=== PATIENT | female | born 1995 | race Caucasian/White ===

== ENCOUNTER 2018-07-30 15:18 | Emergency (ER) | payer MEDICAID, OTHER ==
[~2018-07-30] VITALS: Ht 165.1 cm; Wt 63.5 kg
[2018-07-30 15:25] VITALS: BP 121/79
--- NOTE | 2018-07-30 15:35 | NUR ---
PT. ARRIVED TO ED W/C/O "I KEEP GETTING POSITIVE TESTS AND I WANT TO SEE IF IT REALLY IS POSITIVE." I HAVE ALSO HAD N/V X 3 DAYS. PT STATES " I WENT TO THE URGENT CARE AND A CLINIC AND THE TESTS CAME BACK POSITIVE". ER MD MADE AWARE. SAFETY PRECAUTIONS IMPLEMENTED. WILL CONTINUE TO MONITOR.
[2018-07-30 16:22] LABS: BASOPHILS % (AUTO) 0.3 % (0.0-2.0); EOSINOPHILS % (AUTO) 0.4 % (0.0-4.0); HEMATOCRIT 41.9 % (36-48); HEMOGLOBIN 13.8 g/dL (12.0-16.0); LYMPHOCYTES % (AUTO) 21.1 % (20.5-51.1); MEAN CORPUSCULAR HEMOGLOBIN 30 pg (27-31); MEAN CORPUSCULAR HGB CONC 33 g/dL (33-37); MEAN CORPUSCULAR VOLUME 89.9 fL (80-94); MONOCYTES # (AUTO) 0.4 K/uL (0.8-1.0); MONOCYTES % (AUTO) 4.1 % (1.7-9.3); NEUTROPHILS # (AUTO) 7.2 K/uL (1.8-7.7); NEUTROPHILS % (AUTO) 74.1 % (42.2-75.2); PLATELET COUNT (AUTO) 283 K/uL (140-450); RED BLOOD CELL COUNT(AUTO) 4.67 MIL/uL (4.20-5.40); RED CELL DISTRIBUTION WIDTH 13.3 % (11.6-13.7); WHITE BLOOD COUNT (AUTO) 9.7 K/uL (4.5-11.0)
--- NOTE | 2018-07-30 16:35 | NUR ---
ULTRASOUND AT BEDSIDE AT THIS TIME.
[2018-07-30 16:48] LABS: APPEARANCE,URINE CLEAR (CLEAR); BILIRUBIN,URINE NEGATIVE (NEGATIVE); BLOOD, URINE NEGATIVE (NEGATIVE); COLOR,URINE YELLOW (YELLOW); LEUKOCYTE ESTERASE ,URINE NEGATIVE (NEGATIVE); NITRITE, URINE NEGATIVE (NEGATIVE); UGLUCOSE NEGATIVE (NEGATIVE)
--- NOTE | 2018-07-30 17:49 | NUR ---
CALLED REGARDING US REPORT AT THIS TIME. [facility] WILL FOLLOW UP.
[2018-07-30 18:12] VITALS: BP 118/68
--- NOTE | 2018-07-30 18:13 | NUR ---
Patient discharged with v/s stable. Written and verbal after care instructions given and explained. Patient alert, oriented and verbalized understanding of instructions. Ambulatory with steady gait. All questions addressed prior to discharge. ID band removed. Patient advised to follow up with PMD. Rx of VITAMIN given. Patient educated on indication of medication including possible reaction and side effects. Opportunity to ask questions provided and answered.
== END 2018-07-30 18:13 | disposition home or self-care (01) ==
LOC: MED 15:18
DX: O21.8 Other vomiting complicating pregnancy (principal); Z3A.01 Less than 8 weeks gestation of pregnancy
CPT/HCPCS: 36415; 76817; 81003; 81025; 84702; 85025; 86900; 86901; 99284; Q0092

== ENCOUNTER 2019-02-28 16:53 | Observation (INO) | payer OTHER ==
[~2019-02-28] VITALS: Ht 162.6 cm; Wt 85.7 kg
[2019-02-28 16:56] VITALS: BP 134/87
--- NOTE | 2019-02-28 17:10 | NUR ---
PT TAKEN TO L & D RM #[address] SCHAEFER VERBAL ORDER
[2019-02-28 17:40] VITALS: BP 111/67
[2019-02-28] MEDS ORDERED: PREN-380 PO (17:48)
[2019-02-28] MEDS ORDERED: TERBUTALINE 1 MG/ML VIAL SUBQ SCH (19:30)
[2019-02-28] MEDS ORDERED: TERBUTALINE 1 MG/ML VIAL SUBQ ONE (19:44)
--- NOTE | 2019-03-01 08:13 | NUR ---
PATIENT HAS BEEN SCREENED AND CATEGORIZED LOW NUTRITION RISK. PATIENT WILL BE SEEN WITHIN 7 DAYS OF ADMISSION. 03/07/[address]
== END 2019-03-01 14:00 | disposition home or self-care (01) ==
LOC: MED 16:53 → MLD 17:10
PROVIDERS: ADMIT Obstetrics & Gynecology; ATTEND Obstetrics & Gynecology
DX: O62.9 Abnormality of forces of labor, unspecified (principal); O99.89 Other specified diseases and conditions complicating pregnancy, childbirth and the puerperium; M54.5 Low back pain; Z3A.37 37 weeks gestation of pregnancy
CPT/HCPCS: 36415; 76815; 85379; 96372; 99281; G0378; J3105; Q0092

== ENCOUNTER 2019-03-06 00:55 | Observation (INO) | payer OTHER ==
[~2019-03-06] VITALS: Ht 165.1 cm; Wt 86.2 kg
[~2019-03-06 00:55] MED LIST: PREN-380 PO
[2019-03-06] MEDS: TERBUTALINE 1 MG/ML VIAL SUBQ SCH (02:09)
[2019-03-06 02:27] VITALS: BP 118/73
[2019-03-06] MEDS: TERBUTALINE 1 MG/ML VIAL SUBQ ONE (02:42)
--- NOTE | 2019-03-06 08:17 | NUR ---
PATIENT HAS BEEN SCREENED AND CATEGORIZED LOW NUTRITION RISK. PATIENT WILL BE SEEN WITHIN 7 DAYS OF ADMISSION. 03/12/[address]
[2019-03-06] MEDS ORDERED: TERBUTALINE 2.5 MG TAB PO SCH (10:00)
[2019-03-06] MEDS: TERBUTALINE 2.5 MG TAB ONE (10:17)
== END 2019-03-06 14:00 | disposition home or self-care (01) ==
LOC: MLD 00:55
PROVIDERS: ADMIT Obstetrics & Gynecology; ATTEND Obstetrics & Gynecology
DX: O46.93 Antepartum hemorrhage, unspecified, third trimester (principal); O62.9 Abnormality of forces of labor, unspecified; Z3A.37 37 weeks gestation of pregnancy
CPT/HCPCS: 36415; 76815; 81000; 85379; 96372; G0378; J3105; Q0092

== ENCOUNTER 2019-03-09 05:15 | Inpatient (IN) | payer OTHER ==
[~2019-03-09] VITALS: Ht 165.1 cm; Wt 85.7 kg
[2019-03-09] MEDS ORDERED: LACTATED RINGERS 1,000 ML IV SCH (05:54)
[2019-03-09] MEDS ORDERED: METHYLERGONOVINE 0.2 MG/ML AMP IM PRN (05:55)
[2019-03-09] MEDS ORDERED: CARBOPROST 250 MCG/ML AMP IM PRN (05:55)
[2019-03-09 07:01] LABS: CARBON DIOXIDE 20.1 mmol/L (21-32); CREATININE 0.6 mg/dL (0.6-1.3)
[2019-03-09 07:09] LABS: BASOPHILS % (AUTO) 0.2 % (0.0-2.0); EOSINOPHILS # (AUTO) 0.1 K/uL (0-0.4); HEMATOCRIT 34.4 % (36-48); HEMOGLOBIN 11.4 g/dL (12.0-16.0); LYMPHOCYTES # (AUTO) 1.8 K/uL (2.5-16.5); MEAN CORPUSCULAR HEMOGLOBIN 30 pg (27-31); MEAN CORPUSCULAR HGB CONC 33 g/dL (33-37); MEAN CORPUSCULAR VOLUME 89.2 fL (80-94); MONOCYTES # (AUTO) 0.6 K/uL (0.8-1.0); MONOCYTES % (AUTO) 5.2 % (1.7-9.3); NEUTROPHILS % (AUTO) 77.6 % (42.2-75.2); PLATELET COUNT (AUTO) 288 K/uL (140-450); RED BLOOD CELL COUNT(AUTO) 3.85 MIL/uL (4.20-5.40); RED CELL DISTRIBUTION WIDTH 13.7 % (11.6-13.7); WHITE BLOOD COUNT (AUTO) 11.6 K/uL (4.8-10.8)
[2019-03-09 07:16] LABS: ALBUMIN 2.3 g/dL (3.4-5.0); ANION GAP 18.4 (8-16); POTASSIUM 3.5 mmol/L (3.5-5.1); TOTAL BILIRUBIN 1.9 mg/dL (0.0-1.0)
[2019-03-09 07:33] LABS: APPEARANCE,URINE CLEAR (CLEAR); BILIRUBIN,URINE 1+ (NEGATIVE); BLOOD, URINE TRACE-I (NEGATIVE); COLOR,URINE YELLOW (YELLOW); LEUKOCYTE ESTERASE ,URINE NEGATIVE (NEGATIVE); NITRITE, URINE NEGATIVE (NEGATIVE); PH,URINE 6.5 (5.0-9.0); UGLUCOSE NEGATIVE (NEGATIVE)
[2019-03-09] MEDS ORDERED: NALBUPHINE 10 MG/ML AMP ONE (07:45)
[2019-03-09 07:54] LABS: WBC,URINE 0-5 /HPF (0-5)
--- NOTE | 2019-03-09 08:16 | NUR ---
PATIENT HAS BEEN SCREENED AND CATEGORIZED LOW NUTRITION RISK. PATIENT WILL BE SEEN WITHIN 7 DAYS OF ADMISSION. 03/15/[address]
[2019-03-09] MEDS ORDERED: OXYTOCIN 20 UNITS in LACTATED RINGERS 1,000 ML IV SCH ×2 (08:40→19:05)
[2019-03-09] MEDS ORDERED: OXYTOCIN 20 UNITS/LR PREMIX 1,000 ML IV ONE (08:54)
[2019-03-09] MEDS ORDERED: MORPHINE SULFATE 5 MG/ML VIAL IVP PRN (11:05)
[2019-03-09] MEDS ORDERED: PROMETHAZINE 25 MG/ML VIAL ONE (11:07)
[2019-03-09] MEDS ORDERED: MORPHINE SULFATE 10 MG/ML VIAL IVP PRN (11:10)
[2019-03-09] MEDS ORDERED: ROPIVACAINE 0.2%/NS PREMIX 100 ML EPI ONE (12:41)
[2019-03-09] MEDS ORDERED: NALOXONE 0.4 MG/ML VIAL ONE (14:29)
[2019-03-09] MEDS ORDERED: OXYTOCIN 10 UNITS/ML VIAL ONE (15:09)
[2019-03-09] MEDS ORDERED: BISACODYL 5 MG TABEC PO PRN (19:05)
[2019-03-09] MEDS ORDERED: BENZOCAINE/MENTHOL 20%-0.5% 60 GM CAN TP PRN (19:05)
[2019-03-09] MEDS ORDERED: IBUPROFEN 600 MG TAB PO PRN (19:05)
[2019-03-09] MEDS ORDERED: DOCUSATE SODIUM 100 MG GELCAP PO PRN (19:05)
[2019-03-09] MEDS ORDERED: ACETAMINOPHEN 325 MG TAB PO PRN (19:05)
[2019-03-09] MEDS ORDERED: MEASLES, MUMPS, AND RUBELLA 1 VIAL SQVAC PRN (19:05)
[2019-03-10 10:59] LABS: BASOPHILS % (AUTO) 0.2 % (0.0-2.0); EOSINOPHILS % (AUTO) 0.3 % (0.0-4.0); HEMATOCRIT 29.4 % (36-48); LYMPHOCYTES # (AUTO) 1.6 K/uL (2.5-16.5); LYMPHOCYTES % (AUTO) 13.9 % (20.5-51.1); MEAN CORPUSCULAR HEMOGLOBIN 31 pg (27-31); MEAN CORPUSCULAR HGB CONC 34 g/dL (33-37); MEAN CORPUSCULAR VOLUME 89.6 fL (80-94); MONOCYTES # (AUTO) 0.7 K/uL (0.8-1.0); MONOCYTES % (AUTO) 6.3 % (1.7-9.3); NEUTROPHILS % (AUTO) 79.3 % (42.2-75.2); PLATELET COUNT (AUTO) 289 K/uL (140-450); RED BLOOD CELL COUNT(AUTO) 3.28 MIL/uL (4.20-5.40); RED CELL DISTRIBUTION WIDTH 13.9 % (11.6-13.7); WHITE BLOOD COUNT (AUTO) 11.4 K/uL (4.8-10.8)
[2019-03-11] MEDS ORDERED: FERR325E14 PO ×2 (14:41→14:42)
[2019-03-11] MEDS ORDERED: ACET-9800 PO (14:43)
== END 2019-03-11 15:05 | disposition home or self-care (01) | DRG 560 ==
LOC: MFCC 05:15
PROVIDERS: ADMIT Obstetrics & Gynecology; ATTEND Obstetrics & Gynecology
PROC: 10D07Z6 Extraction of Products of Conception, Vacuum, Via Natural or Artificial Opening (ICD-10-PCS; principal; 2019-03-09)
PROC: 10907ZC Drainage of Amniotic Fluid, Therapeutic from Products of Conception, Via Natural or Artificial Opening (ICD-10-PCS; 2019-03-09)
PROC: 0KQM0ZZ Repair Perineum Muscle, Open Approach (ICD-10-PCS; 2019-03-09)
PROC: 00HU33Z Insertion of Infusion Device into Spinal Canal, Percutaneous Approach (ICD-10-PCS; 2019-03-09)
PROC: 3E0R3BZ Introduction of Anesthetic Agent into Spinal Canal, Percutaneous Approach (ICD-10-PCS; 2019-03-09)
PROC: 3E0234Z Introduction of Serum, Toxoid and Vaccine into Muscle, Percutaneous Approach (ICD-10-PCS; 2019-03-10)
DX: O77.0 Labor and delivery complicated by meconium in amniotic fluid (principal); R71.0 Precipitous drop in hematocrit; O71.4 Obstetric high vaginal laceration alone; Z37.0 Single live birth; Z3A.38 38 weeks gestation of pregnancy; Z80.9 Family history of malignant neoplasm, unspecified; Z23 Encounter for immunization
CPT/HCPCS: 36415; 76815; 80053; 81001; 85025; 86592; 86886; 86900; 86901; 90715; J2270; J2300; J2310; J2550; J2590; J2795; J7120; Q0092

== ENCOUNTER 2019-12-13 22:40 | Inpatient (IN) | payer OTHER ==
[~2019-12-13] VITALS: Ht 165.1 cm; Wt 84.8 kg
[~2019-12-13 22:40] MED LIST changes: +ACET-9800 PO; +FERR325E14 PO
[2019-12-13 23:08] VITALS: BP 113/69
[2019-12-13] MEDS ORDERED: OXYTOCIN 20 UNITS/LR PREMIX 1,000 ML IV ONE (23:37)
[2019-12-13] MEDS ORDERED: ONDANSETRON 4 MG/2 ML VIAL ONE (23:51)
[2019-12-14 01:00] LABS: APPEARANCE,URINE CLEAR (CLEAR); BILIRUBIN,URINE 3+ (NEGATIVE); BLOOD, URINE 2+ (NEGATIVE); COLOR,URINE ORANGE (YELLOW); LEUKOCYTE ESTERASE ,URINE TRACE (NEGATIVE); NITRITE, URINE POSITIVE (NEGATIVE); UGLUCOSE TRACE (NEGATIVE)
[2019-12-14 01:00] LABS: BASOPHILS % (AUTO) 0.1 % (0.0-2.0); EOSINOPHILS % (AUTO) 0.4 % (0.0-4.0); HEMATOCRIT 33.2 % (36-48); LYMPHOCYTES # (AUTO) 0.9 K/uL (2.5-16.5); MEAN CORPUSCULAR HEMOGLOBIN 30 pg (27-31); MEAN CORPUSCULAR HGB CONC 33 g/dL (33-37); MEAN CORPUSCULAR VOLUME 91.1 fL (80-94); MONOCYTES # (AUTO) 0.4 K/uL (0.8-1.0); NEUTROPHILS # (AUTO) 11.2 K/uL (1.8-7.7); NEUTROPHILS % (AUTO) 89.5 % (42.2-75.2); PLATELET COUNT (AUTO) 308 K/uL (140-450); RED BLOOD CELL COUNT(AUTO) 3.64 MIL/uL (4.20-5.40); RED CELL DISTRIBUTION WIDTH 13.9 % (11.6-13.7); WHITE BLOOD COUNT (AUTO) 12.5 K/uL (4.8-10.8)
[2019-12-14] MEDS ORDERED: BENZOCAINE/MENTHOL 20%-0.5% 60 GM CAN TP PRN (01:05)
[2019-12-14] MEDS ORDERED: MEASLES, MUMPS, AND RUBELLA 1 VIAL SQVAC PRN (01:05)
[2019-12-14] MEDS ORDERED: IBUPROFEN 800 MG TAB PO PRN (01:05)
[2019-12-14] MEDS ORDERED: METHYLERGONOVINE 0.2 MG/ML AMP IM PRN (01:05)
[2019-12-14] MEDS ORDERED: METHYLERGONOVINE 0.2 MG TAB PO PRN (01:05)
[2019-12-14] MEDS ORDERED: OXYTOCIN 10 UNITS/ML VIAL IM PRN (01:05)
[2019-12-14 01:19] LABS: ALBUMIN 2.3 g/dL (3.4-5.0); ANION GAP 13.5 (8-16); CARBON DIOXIDE 25.1 mmol/L (21-32); CREATININE 0.6 mg/dL (0.6-1.3); POTASSIUM 3.6 mmol/L (3.5-5.1); TOTAL BILIRUBIN 2.1 mg/dL (0.0-1.0)
[2019-12-14] MEDS ORDERED: ONDANSETRON 4 MG/2 ML VIAL IVP PRN (02:05)
[2019-12-14] MEDS ORDERED: OXYTOCIN 20 UNITS in LACTATED RINGERS 1,000 ML IV SCH (03:00)
[2019-12-14] MEDS ORDERED: LIDOCAINE MPF 1% 10 MG/ML VIAL INJ SCH (03:00)
[2019-12-14 03:18] LABS: WBC,URINE 0-5 /HPF (0-5)
--- NOTE | 2019-12-14 08:40 | NUR ---
PATIENT HAS BEEN SCREENED AND CATEGORIZED LOW NUTRITION RISK. PATIENT WILL BE SEEN WITHIN 7 DAYS OF ADMISSION. 12/20/[address]
[2019-12-14 10:26] LABS: HEMATOCRIT 32.7 % (36-48); HEMOGLOBIN 10.9 g/dL (12.0-16.0)
== END 2019-12-14 20:35 | disposition home or self-care (01) | DRG 560 ==
LOC: MLD 22:40 → OBSVTOIN 23:00 → MLD 12-14 02:54 → MFCC 12-14 03:40
PROVIDERS: ADMIT Obstetrics & Gynecology; ATTEND Obstetrics & Gynecology
PROC: 10E0XZZ Delivery of Products of Conception, External Approach (ICD-10-PCS; principal; 2019-12-13)
PROC: 0UQMXZZ Repair Vulva, External Approach (ICD-10-PCS; 2019-12-13)
PROC: 0HQ9XZZ Repair Perineum Skin, External Approach (ICD-10-PCS; 2019-12-13)
PROC: 3E0234Z Introduction of Serum, Toxoid and Vaccine into Muscle, Percutaneous Approach (ICD-10-PCS; 2019-12-14)
DX: O60.14X0 Preterm labor third trimester with preterm delivery third trimester, not applicable or unspecified (principal); O70.0 First degree perineal laceration during delivery; O77.0 Labor and delivery complicated by meconium in amniotic fluid; O71.82 Other specified trauma to perineum and vulva; Z3A.32 32 weeks gestation of pregnancy; Z37.0 Single live birth; Z23 Encounter for immunization
CPT/HCPCS: 36415; 80053; 81001; 85018; 85025; 86886; 86900; 86901; G0378; J2405; J2590; J7120